=== PATIENT | male | born 1945 ===

== ENCOUNTER → 2020-09-15 | Outpatient (CLI) | payer MEDICARE, OTHER ==
[~2020-09-15] MED LIST: ALLO300T PO; AMIO200T42 PO; AMOX1TAB64 PO; ASPI-515 PO; LACT1CAP35 PO; METF500T PO; METO25TA35 PO; REGADENOSON 0.4 MG/5 ML SYRINGE ONE; SIMV40TA PO; TELM1TAB3 PO; TELM80TA PO
== END | disposition home or self-care (01) ==
LOC: CFH 12:40
PROVIDERS: ATTEND Internal Medicine Cardiovascular Disease
DX: I48.0 Paroxysmal atrial fibrillation (principal); I10 Essential (primary) hypertension
CPT/HCPCS: 78452; 93017; A9502; J2785